=== PATIENT | male | born 1980 | race Hispanic/Latino ===

== ENCOUNTER 2017-05-29 10:42 | Observation (INO) | payer OTHER ==
[2017-05-29 10:43] VITALS: BMI 30.5
[2017-05-29] MEDS ORDERED: Morphine 1 mg/ml preservative-free Inj(Duramorph) ONE (11:09)
[2017-05-29] MEDS ORDERED: Bupivacaine 0.5% Inj(30mL) ONE (11:09)
[2017-05-29] MEDS ORDERED: Thrombin Topical 5,000 Int Units Spray Kit ONE (11:09)
[2017-05-29] MEDS ORDERED: Bacitracin Ointment 30 GM TUBE ONE (11:09)
[2017-05-29] MEDS ORDERED: ceFAZolin IV 1 gm in Dextrose 0 GM/0 ML BAG IVPB ONE (11:09)
[2017-05-29 11:10] VITALS: BP 120/79; PULSE 74; RESP 18; TEMP 98; O2SAT 99
[2017-05-29] MEDS ORDERED: Sodium Chloride 0.9% 1,000 ML IV STA ×2 (11:25→12:34)
[2017-05-29] MEDS ORDERED: Insulin Regular 100 units/ml IVP STA (11:26)
[2017-05-29 11:43] LABS: BASO # 0.1 K/uL (0.0-0.2); BASO % 0.7 % (0.0-2.0); EOS # 0.1 K/uL (0.0-0.7); HEMOGLOBIN 15.9 g/dL (12.0-18.0); LYMPH # 2.6 K/uL (1.0-4.3); LYMPH % 34.3 % (20.0-40.0); MEAN CELL VOLUME 87.8 fl (80.0-94.0); MEAN CORPUSCULAR HEMOGLOBIN 29.5 pg (27.0-31.0); MEAN CORPUSCULAR HGB CONC 33.6 g/dL (33.0-37.0); MEAN PLATELET VOLUME 10.4 fl (7.2-11.7); MONO # 0.8 K/uL (0.0-0.8); MONO % 10.2 % (0.0-10.0); NEUT % 52.8 % (50.0-75.0); NRBC % 0.3 % (0.0-0.0); RBC 5.39 Mil/uL (4.40-5.90); RED CELL DISTRIBUTION WIDTH 13.4 % (11.5-14.5); WHITE BLOOD COUNT 7.5 K/uL (4.8-10.8)
[2017-05-29] MEDS ORDERED: Insulin Regular 100 units/ml ONE (11:44)
[2017-05-29] MEDS ORDERED: HYDROmorphone 0.5 mg/0.5 ml ISec IVP STA (11:46)
[2017-05-29] MEDS ORDERED: HYDROmorphone 0.5 mg/0.5 ml ISec ONE (11:51)
[2017-05-29 12:08] LABS: ALB/GLOB RATIO 1.8 (1.0-2.1); ALBUMIN 4.4 g/dL (3.5-5.0); ALT/SGPT 74 U/L (21-72); AST/SGOT 28 U/L (17-59); BLOOD UREA NITROGEN 15 mg/dl (9-20); CALCIUM 9.6 mg/dL (8.4-10.2); GFR AFRICAN-AMERICAN > 60; GFR NON-AFRICAN AMERICAN > 60
--- NOTE | 2017-05-29 12:34 | ED PDOC ---
HPI: General Adult Time Seen by Provider: 05/29/17 11:17 Chief Complaint (Nursing): Upper Extremity Problem/Injury History Per: Patient Additional Complaint(s): Pt. states since November 2016 he's had worsening R elbow pain which radiates into his R thumb. Reports that he's been seeing Dr. Vazquez for the symptoms. He was initially given a steroid injection in the joint without any relief. 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 R hand dominant. Denies trauma, fever. Of note, pt. forgot to take his DM meds last night and did not take it this morning. Against Medical Advice - AMA Patient Left Against Medical Advice: The patient declines admission to the hospital and wishes to leave the Emergency Department. This action is against my medical advice. This decision was made with informed refusal. The patient was told that admission to the hospital is necessary. Explanation of the reasons why were discussed. The risks of leaving were explained to the patient and include, but are not limited to, worsening of known or currently unknown conditions, permanent disability and from undiagnosed or untreated conditions. The patient has the capacity to make this informed decision and understands my explanation of the current medical problem and risks of leaving. The patient voluntarily accepts these risks and signed an AMA form documenting our conversation. The patient was given the opportunity to ask questions and reconsider. The patient was encouraged to return to the Emergency Department at any time for further care. Past Medical History Reviewed: Historical Data, Nursing Documentation, Vital Signs Vital Signs: Last Vital Signs Temp 98 F 05/29/17 11:06 Pulse 74 05/29/17 11:06 Resp 18 05/29/17 11:06 BP 120/79 05/29/17 11:06 Pulse Ox 99 05/29/17 14:49 - Medical History PMH: Depression, Hypercholesterolemia Denies: Chronic Kidney Disease - Family History Family History: States: No Known Family Hx - Home Medications Home Medications: Ambulatory Orders Medication Instructions Recorded Atorvastatin [Lipitor] 10 mg PO HS 08/20/15 Insulin Glargine, Recombina 22 unit SQ HS 08/20/15 [Lantus] Insulin Lispro [Humalog] 15 units SQ ACTID 08/20/15 metFORMIN [glucOPHAGE] 500 mg PO BID 08/20/15 - Allergies Allergies/Adverse Reactions: Allergies Allergy/AdvReac Type Severity Reaction Status Date / Time No Known Allergies Allergy Verified 08/19/15 12:02 Review of Systems ROS Statement: Except As Marked, All Systems Reviewed And Found Negative Physical Exam - Reviewed Nursing Documentation Reviewed: Yes Vital Signs Reviewed: Yes - Physical Exam Appears: Positive for: Well, Non-toxic, No Acute Distress Head Exam: Positive for: ATRAUMATIC, NORMAL INSPECTION, NORMOCEPHALIC Skin: Positive for: Normal Color, Warm. Negative for: Rash Eye Exam: Positive for: EOMI, Normal appearance, PERRL ENT: Positive for: Normal ENT Inspection Neck: Positive for: Normal, Painless ROM Cardiovascular/Chest: Positive for: Regular Rate, Rhythm Respiratory: Positive for: CNT, Normal Breath Sounds Pulses-Radial (L): 2+ Pulses-Radial (R): 2+ Gastrointestinal/Abdominal: Positive for: Normal Exam, Bowel Sounds, Soft. Negative for: Tenderness Back: Positive for: Normal Inspection Extremity: Positive for: Other (R elbow with limited ROM secondary to pain; increased pain with movement of R thumb; no swelling, warmth, erythema, or break in skin integrity of R thumb) Neurologic/Psych: Positive for: Alert, Oriented - Laboratory Results Result Diagrams: 05/29/17 11:35 05/29/17 11:35 - ECG O2 Sat by Pulse Oximetry: 99 - Progress ED Course And Treament: Labs ordered. Insulin 6 units, IV NS bolus x 1, dilaudid 0.5mg IV, zofran 4mg IV ordered. On re-evaluation, pt. still with R elbow pain. Repeat FSBS: 274. Case d/w Dr. Vazquez who requests pt. to be admitted for further evaluation due to persistent arm pain despite IV pain med. Pt. informed of plan but does not want to stay in hospital and states he will f/ u with Dr. Vazquez tomorrow. Dr. Vazquez informed of pt. not wanting to stay in hospital. States pt. can sign out AMA and can f/u in his office tomorrow at 1300. Pt. informed plan and will sign AMA and f/u with Dr. Vazquez tomorrow. Disposition - Clinical Impression Clinical Impression: Elbow pain, Left against medical advice, Hyperglycemia - Patient ED Disposition Is Patient to be Admitted: No - Disposition Disposition: Against Medical Advice Disposition Time: 14:00 Condition: STABLE
--- NOTE | 2017-05-29 12:48 | RAD ---
PROCEDURE: Radiographs of the right elbow. HISTORY: pain COMPARISON: No prior. FINDINGS: BONES: The current study reveals no definitive radiographic evidence of acute displaced fracture nor dislocation. The osseous structures appear intact. JOINTS: Joint spaces preserved. No significant osteoarthritis. SOFT TISSUES: Normal. JOINT EFFUSION: No significant joint effusion OTHER FINDINGS: None. IMPRESSION: No definitive radiographic evidence of acute displaced fracture or dislocation. If symptoms persist or occult fracture suspected clinically consider repeat radiographs in 5-10 days as most fractures should become radiographically evident this timeframe. Alternately, consider followup MRI. .
[2017-05-29 14:13] LABS: URINE BILIRUBIN NEGATIVE (NEGATIVE); URINE BLOOD NEGATIVE (NEGATIVE); URINE CLARITY CLEAR (Clear); URINE COLOR STRAW (YELLOW); URINE GLUCOSE (UA) >=500 mg/dL (Normal); URINE LEUKOCYTE ESTERASE NEG Leu/uL (Negative); URINE NITRATE NEGATIVE (NEGATIVE); URINE PROTEIN NEGATIVE (NEGATIVE); URINE UROBILINOGEN 0.2-1.0 mg/dL (0.2-1.0)
--- NOTE | 2017-05-30 08:32 | CARD ---
APPROVED REPORT EKG Measurement Heart [id number] ND [id number] <Conclusion> Sinus bradycardia Early repolarization Otherwise normal ECG
== END 2017-05-29 14:57 | disposition left against medical advice (07) ==
LOC: H.ER 10:42 → H.ERHOLD 14:00
PROVIDERS: ADMIT Student in an Organized Health Care Education/Training Program; ATTEND Student in an Organized Health Care Education/Training Program
DX: M25.521 Pain in right elbow (principal); E78.00 Pure hypercholesterolemia, unspecified; F32.9 Major depressive disorder, single episode, unspecified; E11.65 Type 2 diabetes mellitus with hyperglycemia
CPT/HCPCS: 73080; 80053; 81003; 82948; 85025; 85610; 85730; 86850; 86900; 93005; 96361; 96374; 96375; 99283; G0378; J1170; J2405; J7040